=== PATIENT | male | born 1975 | race Hispanic/Latino ===

== ENCOUNTER 2016-10-20 18:47 | Inpatient (IN) | payer OTHER ==
[2016-10-20 18:49] VITALS: BMI 21.2
[2016-10-20] MEDS ORDERED: Morphine 4 mg/ml ISec IVP STA (18:59)
[2016-10-20] MEDS ORDERED: Sodium Chloride 0.9% 1,000 ML IV STA (18:59)
--- NOTE | 2016-10-20 19:03 | ED PDOC ---
"Arrival/HPI - General Chief Complaint: Abdominal Pain Time Seen by Provider: 10/20/16 18:53 Historian: Patient - History of Present Illness Narrative History of Present Illness (Text): 10/20/16 19:00 41 y/o male, citizen of [place] [employer] [place] Izzy Braga -1002, no pmh, nkda, c/o rt. flank pain x 1 day. Sharp and aching pain, no urinary symptoms, start from the rt. flank to the rt. sided abdomen region, aggravated by breathing, no diarrhea, no fever or chills, no chest pain or shortness of breath, no coughing, no rash, no other medical or psychological complaints. Past Medical History - Provider Review Nursing Documentation Reviewed: Yes - Infectious Disease Hx of Infectious Diseases: None - Psychiatric Hx Substance Use: No - Anesthesia Hx Anesthesia: No Family/Social History - Physician Review Nursing Documentation Reviewed: Yes Family/Social History: Unknown Family HX Smoking Status: Current Some Days Smoker Hx Alcohol Use: No Hx Substance Use: No Allergies/Home Meds Allergies/Adverse Reactions: Allergies No Known Allergies Allergy (Verified 10/20/16 18:50) Home Medications: Home Meds Medication Instructions Recorded Confirmed No Known Home Med 10/20/16 10/20/16 Review of Systems - Review of Systems Constitutional: absent: Fatigue Eyes: absent: Vision Changes ENT: absent: Hearing Changes Respiratory: absent: SOB, Cough Cardiovascular: absent: Chest Pain, Palpitations Gastrointestinal: Abdominal Pain. absent: Diarrhea, Nausea, Vomiting Neurological: absent: Headache, Dizziness, Focal Weakness Physical Exam Vital Signs Reviewed: Yes Vital Signs Temp Pulse Resp BP Pulse Ox 10/20/16 21:07 78 18 137/86 98 10/20/16 19:25 90 17 148/93 H 100 10/20/16 18:51 98.8 F 96 H 18 126/85 96 Temperature: Afebrile Blood Pressure: Normal Pulse: Regular Respiratory Rate: Normal Appearance: Positive for: Well-Appearing, Non-Toxic Pain Distress: Severe Mental Status: Positive for: Alert and Oriented X 3 - Systems Exam Head: Present: Atraumatic, Normocephalic Pupils: Present: PERRL Extroacular Muscles: Present: EOMI Conjunctiva: Present: Normal Mouth: Present: Moist Mucous Membranes Neck: Present: Normal Range of Motion Respiratory/Chest: Present: Clear to Auscultation, Good Air Exchange. No: Respiratory Distress, Accessory Muscle Use Cardiovascular: Present: Regular Rate and Rhythm, Normal S1, S2. No: Murmurs Abdomen: Present: Tenderness (+ttp on the rt. flank ), Normal Bowel Sounds. No : Distention, Peritoneal Signs, Rebound, Guarding Back: Present: Normal Inspection Upper Extremity: Present: Normal Inspection. No: Cyanosis, Edema Lower Extremity: Present: Normal Inspection. No: Edema Neurological: Present: GCS=15, Speech Normal, Motor Func Grossly Intact, Gait Normal, Memory Normal Skin: Present: Warm, Dry, Normal Color. No: Rashes Psychiatric: Present: Alert, Oriented x 3, Normal Insight, Normal Concentration Medical Decision Making ED Course and Treatment: 10/20/16 19:03 -labs/ua -CT abdomen and pelvis -IVF/morphine -observe and reassess 10/20/16 21:20 -Labs are non-significant except wbc 11.4 which is likely stress induced, no fever or chills. -UA show no UTI -CT abdomen show pneumonia vs. atelectasis vs. PE with IV contrast -D-dimer and chest x-ray ordered, discussed and agreed by Dr. Ramirez -Pt. was still having pain, diladid 1mg IV ordered. 10/20/16 22:30 -D-dimer 6.00, pt. will be anticoagulated since he has pleuritic pain. Pt. has no rectal bleeding or hematuria. -IV rocephine 1gm prophylatic order as the CT chest show possible pneumonia but the plain radiology film wet read show questionable findings of the rt. lower lobe infiltrate. -PT/PTT ordered -I discussed the case/treatment and observation plan with Dr. Ramirez, he agreed that the patient needs to be admit tonight for observation for v/q scan tomorrow morning and anticoagulate with lovenox. -I discussed with the patient and he agreed with the plan as well which he is awared of all the lab results. -I discussed with pmd DR. Alford, doesn't admit at [place], discussed all the labs and radiology, agreed on the observation and prophylactically treatment as well. 10/20/16 22:53 -I spoke to the medical office representative preschool education director and Dr. Orozco, discussed the case in detail, Dr. Orozco agreed to observe the patient overnight until v/q scan or CTA tomorrow. -NSR @ 65 BPM, no ST elevation or depression, no T wave inversion. - Lab Interpretations Lab Results: 10/21/16 06:00 10/21/16 06:00 Lab Results 10/21/16 06:00: Hemoglobin A1c 6.2 10/21/16 06:00: Triglycerides 84, Cholesterol 165, LDL Cholesterol Direct 106, HDL Cholesterol 39, Lipase 55 10/21/16 06:00: Sodium 139, Potassium 4.2, Chloride 103, Carbon Dioxide 26, Anion Gap 14, BUN 11, Creatinine 0.9, Est GFR ( Amer) > 60, Est GFR (Non- Af Amer) > 60, Random Glucose 105, Calcium 9.0, Phosphorus 3.3, Magnesium 1.8 10/21/16 06:00: WBC 9.8, RBC 4.66, Hgb 13.9 L, Hct 42.4, MCV 91.0, MCH 29.8, MCHC 32.8, RDW 13.2, Plt Count 172, MPV 10.9, Gran % 68.0, Lymph % (Auto) 22.3, [place] % (Auto) 8.7 H, Eos % (Auto) 0.8 L, Baso % (Auto) 0.2, Gran # 6.67 H, Lymph # 2.2, [place] # 0.9 H, Eos # 0.1, Baso # 0.02 10/20/16 21:35: PT 11.2, INR 1.04, APTT 27.5 10/20/16 21:35: D-Dimer, Quantitative 6.00 H 10/20/16 19:10: Sodium 139, Potassium 3.9, Chloride 102, Carbon Dioxide 25, Anion Gap 16, BUN 12, Creatinine 1.0, Est GFR ( Amer) > 60, Est GFR (Non- Af Amer) > 60, Random Glucose 110, Calcium 9.1, Total Bilirubin 0.8, AST 23, ALT 23, Alkaline Phosphatase 54, Total Protein 7.7, Albumin 4.4, Globulin 3.3, Albumin/Globulin Ratio 1.3 10/20/16 19:10: Urine Color Yellow, Urine Appearance Clear, Urine pH 6.0, Ur Specific [place] 1.020, Urine Protein Trace H, Urine Glucose (UA) Negative, Urine Ketones Negative, Urine Blood Negative, Urine Nitrate Negative, Urine Bilirubin Negative, Urine Urobilinogen 0.2, Ur Leukocyte Esterase Negative, Urine RBC 0 - 2, Urine WBC 0 - 2, Ur Epithelial Cells 0 - 2, Urine Bacteria Neg 10/20/16 19:10: WBC 11.4 H, RBC 4.96, Hgb 15.0, Hct 44.3, MCV 89.3, MCH 30.2, MCHC 33.9, RDW 12.9, Plt Count 175, MPV 10.6, Gran % 74.4 H, Lymph % (Auto) 16.2 L, [place] % (Auto) 8.7 H, Eos % (Auto) 0.6 L, Baso % (Auto) 0.1, Gran # 8.47 H, Lymph # 1.8, [place] # 1.0 H, Eos # 0.1, Baso # 0.01 I have reviewed the lab results: Yes Interpretation: Abnormal lab values (wbc 11.4, ddimer 6.00) - RAD Interpretation Radiology Orders: 10/20/16 19:01 ABDOMEN & PELVIS [ABD & PELVIS IV CONTRAST ONLY] [CT] Stat 10/20/16 21:19 CHEST TWO VIEWS (PA/LAT) [RAD] Stat 10/20/16 23:51 DUPLEX LOWER EXTRM VEIN BILAT [US] Stat CONTRAST: 94 mL of omni 350 administered intravenously. COMPARISON: No relevant prior studies available. FINDINGS: Limitations: Motion artifact - mild. Lower thorax: Mild dependent atelectasis. Patchy airspace disease posterior periphery RIGHT lower lobe. Questionable filling defects within branches of RIGHT lower lobe pulmonary artery. ABDOMEN: Liver: Unremarkable. No mass. ROXANN MAGALLON | Final Radiology Report CONFIDENTIALITY STATEMENT This report is intended only for use by the referring physician, and only in accordance with law. If you received this in error, call [phone]. Page 2 of 2 Gallbladder and bile ducts: No calcified stones. No ductal dilation. Pancreas: No ductal dilation. No mass. Spleen: No splenomegaly. Adrenals: No mass. Kidneys and ureters: No mass. No hydronephrosis. Stomach and bowel: No definite mural thickening. No obstruction. Appendix: Normal caliber. No definite inflammation. PELVIS: Bladder: Unremarkable. Reproductive: Mildly enlarged prostate. ABDOMEN and PELVIS: Intraperitoneal space: No significant fluid collection. No free air. Bones/joints: No acute fracture. Soft tissues: Unremarkable. Vasculature: Unremarkable. No aneurysm. Lymph nodes: No pathologically enlarged lymph nodes. IMPRESSION: 1. Patchy airspace disease RIGHT lower lobe. DDX: Atelectasis, pneumonia, aspiration, infarct. 2. Questionable filling defects within RIGHT lower lobe pulmonary artery. Suggest CTA when clinically able. 3. Incidental/non-acute findings are described above. Thank you for allowing us to participate in the care of your patient. Dictated and Authenticated by: Harmeet Hawkins MD 10/20/2016 9:08 PM Eastern Time ([place] & [place]) Parking Station Attendant: Radiologist - EKG Interpretation EKG Interpretation (Text): 10/20/16 23:50 NSR @ 65 BPM, no ST elevation or depression, no T wave inversion. Interpreted by ED Physician: Yes Type: 12 lead EKG Comparison: No previous EKG avail. - Medication Orders Current Medication Orders: Azithromycin (Zithromax) 500 mg PO DAILY JYOTI PRN Reason: Protocol Last Admin: 10/21/16 10:21 Dose: 500 mg Hydromorphone HCl (Dilaudid) 1 mg IVP Q4H PRN PRN Reason: Pain, severe (8-10) Last Admin: 10/21/16 10:21 Dose: 1 mg Re-Assess: GELA Pain Assessment Document 10/21/16 11:21 RDS (Rec: 10/21/16 12:21 RDS [facility]) Pain Reassessment Is this a pain reassessment? Yes Sleep Is patient sleeping during reassessment? Yes Sodium Chloride (Sodium Chloride 0.9%) 1,000 mls @ 150 mls/hr IV .Q6H40M [facility] Last Admin: 10/21/16 05:42 Dose: 150 mls/hr Ceftriaxone Sodium (Rocephin 1 Gram Ivpb) 1 gm in 100 mls @ 100 mls/hr IVPB DAILY JYOTI PRN Reason: Protocol Last Admin: 10/21/16 09:11 Dose: 100 mls/hr Heparin Sodium/Dextrose (Heparin 25,000 Units/250ml In D5w) 25,000 units in 250 mls @ 12.982 mls/hr IV .[id number] PRN; Protocol; 18 UNITS/KG/HR PRN Reason: ADJUST RATE PER PROTOCOL Last Admin: 10/21/16 09:00 Dose: 18 units/kg/hr, 12.982 mls/hr Oxycodone/Acetaminophen (Percocet 5/325 Mg Tab) 1 tab PO Q4H PRN PRN Reason: Pain, moderate (4-7) Stop: 10/24/16 05:53 Pantoprazole Sodium (Protonix Ec Tab) 40 mg PO 0600 JYOTI Last Admin: 10/21/16 05:42 Dose: 40 mg Discontinued Medications Enoxaparin Sodium (Lovenox) 75 mg SC STAT STA PRN Reason: Protocol Stop: 10/20/16 22:54 Last Admin: 10/20/16 23:05 Dose: 75 mg Enoxaparin Sodium (Lovenox) 75 mg SC Q12 JYOTI PRN Reason: Protocol Heparin Sodium (Porcine) (Heparin) 5,800 units 80 units/kg (5800 units) IV ONCE ONE PRN Reason: Protocol Stop: 10/21/16 07:48 Last Admin: 10/21/16 08:45 Dose: 5,800 units Hydromorphone HCl (Dilaudid) 1 mg IVP STAT STA Stop: 10/20/16 20:57 Last Admin: 10/20/16 21:10 Dose: 1 mg Hydromorphone HCl (Dilaudid) 1 mg IVP Q4H PRN PRN Reason: Pain, moderate (4-7) Last Admin: 10/21/16 05:42 Dose: 1 mg Sodium Chloride (Sodium Chloride 0.9%) 1,000 mls @ 999 mls/hr IV .Q1H1M STA Stop: 10/20/16 19:59 Last Admin: 10/20/16 19:30 Dose: 999 mls/hr Ceftriaxone Sodium (Rocephin 1 Gram Ivpb) 1 gm in 100 mls @ 200 mls/hr IVPB STAT STA PRN Reason: Protocol Stop: 10/20/16 22:55 Last Admin: 10/20/16 22:38 Dose: 200 mls/hr Iohexol (Omnipaque 350 100 Ml) Confirm Administered Dose 350 mg .ROUTE .STK-MED ONE Stop: 10/20/16 19:51 Morphine Sulfate (Morphine) 4 mg IVP STAT STA Stop: 10/20/16 19:00 Last Admin: 10/20/16 19:41 Dose: 4 mg - PA / LOSS PREVENTION SUPERVISOR / Resident Statement MD/DO has reviewed & agrees with the documentation as recorded. Disposition/Present on Arrival - Present on Arrival Any Indicators Present on Arrival: No History of DVT/PE: No History of Uncontrolled Diabetes: No Urinary Catheter: No History of Decub. Ulcer: No History Surgical Site Infection Following: None - Disposition Have Diagnosis and Disposition been Completed?: Yes Diagnosis: Flank pain, Pleuritic pain, Elevated d-dimer, Abnormal chest x-ray Disposition: HOSPITALIZED Disposition Time: 22:32 Patient Plan: Observation Patient Problems: Current Active Problems Problem Status Onset Flank pain Acute Pleuritic pain Acute Condition: STABLE"
[2016-10-20 19:24] LABS: URINE BILIRUBIN NEGATIVE (NEGATIVE); URINE BLOOD NEGATIVE (NEGATIVE); URINE GLUCOSE (UA) NEGATIVE (NEGATIVE); URINE LEUKOCYTE ESTERASE NEGATIVE Leu/uL (NEGATIVE); URINE NITRATE NEGATIVE (NEGATIVE); URINE PROTEIN TRACE mg/dL (<30 mg/dL); URINE UROBILINOGEN 0.2 E.U./dL (<1 E.U./dL)
[2016-10-20 19:27] LABS: BASO # 0.01 K/mm3 (0.0-2.0); BASO % 0.1 % (0.0-3.0); EOS # 0.1 (0.0-0.7); EOS % 0.6 % (1.5-5.0); GRAN # 8.47 (1.4-6.5); GRAN % 74.4 % (50.0-68.0); LYMPH # 1.8 (1.2-3.4); LYMPH % 16.2 % (22.0-35.0); MEAN CELL VOLUME 89.3 fL (80.0-105.0); MEAN CORPUSCULAR HEMOGLOBIN 30.2 pg (25.0-35.0); MEAN CORPUSCULAR HGB CONC 33.9 g/dl (31.0-37.0); MEAN PLATELET VOLUME 10.6 fl (7.0-11.0); MONO % 8.7 % (1.0-6.0); PLATELET COUNT 175 10^3/uL (120.0-450.0); RBC 4.96 10^6/uL (3.5-6.1); RED CELL DISTRIBUTION WIDTH 12.9 % (11.5-14.5); WHITE BLOOD COUNT 11.4 10^3/ul (4.5-11.0)
[2016-10-20 19:34] LABS: ALB/GLOB RATIO 1.3 (1.1-1.8); ALBUMIN 4.4 g/dL (3.0-4.8); ALT/SGPT 23 U/L (7-56); AST/SGOT 23 U/L (15-59); BLOOD UREA NITROGEN 12 mg/dL (7-21); CALCIUM 9.1 mg/dL (8.4-10.5); GFR AFRICAN-AMERICAN > 60; GFR NON-AFRICAN AMERICAN > 60
[2016-10-20 19:49] LABS: URINE APPEARANCE CLEAR (CLEAR); URINE COLOR YELLOW (YELLOW)
[2016-10-20] MEDS ORDERED: Iohexol 350 MG/100 ML VIAL ONE (19:50)
[2016-10-20 19:52] LABS: URINE BACTERIA NEG (NEG); URINE EPITHELIAL CELLS 0 - 2 /hpf (0-5); URINE RBC 0 - 2 /hpf (0-2); URINE WBC 0 - 2 /hpf (0-6)
[2016-10-20] MEDS ORDERED: HYDROmorphone 1 mg/ml ISec IVP STA (20:56)
--- NOTE | 2016-10-20 21:08 | CT ---
EXAM: CT Abdomen and Pelvis With Intravenous Contrast CLINICAL HISTORY: 41 years old, male; Pain; Abdominal pain; Localized; Right; Additional info: Rt. Flank to rt. Sided abdomen region TECHNIQUE: Axial computed tomography images of the abdomen and pelvis with intravenous contrast. This CT exam was performed using one or more of the following dose reduction techniques: automated exposure control, adjustment of the mA and/or kV according to patient size, and/or use of iterative reconstruction technique. Coronal and sagittal reformatted images were created and reviewed. CONTRAST: 94 mL of omni 350 administered intravenously. COMPARISON: No relevant prior studies available. FINDINGS: Limitations: Motion artifact - mild. Lower thorax: Mild dependent atelectasis. Patchy airspace disease posterior periphery RIGHT lower lobe. Questionable filling defects within branches of RIGHT lower lobe pulmonary artery. ABDOMEN: Liver: Unremarkable. No mass. Gallbladder and bile ducts: No calcified stones. No ductal dilation. Pancreas: No ductal dilation. No mass. Spleen: No splenomegaly. Adrenals: No mass. Kidneys and ureters: No mass. No hydronephrosis. Stomach and bowel: No definite mural thickening. No obstruction. Appendix: Normal caliber. No definite inflammation. PELVIS: Bladder: Unremarkable. Reproductive: Mildly enlarged prostate. ABDOMEN and PELVIS: Intraperitoneal space: No significant fluid collection. No free air. Bones/joints: No acute fracture. Soft tissues: Unremarkable. Vasculature: Unremarkable. No aneurysm. Lymph nodes: No pathologically enlarged lymph nodes. IMPRESSION: 1. Patchy airspace disease RIGHT lower lobe. DDX: Atelectasis, pneumonia, aspiration, infarct. 2. Questionable filling defects within RIGHT lower lobe pulmonary artery. Suggest CTA when clinically able. 3. Incidental/non-acute findings are described above.
[2016-10-20] MEDS ORDERED: cefTRIAXone 1 gm 1 GM/100 ML BAG IVPB STA (22:26)
[2016-10-20] MEDS ORDERED: Enoxaparin 60 mg Syringe SC STA (22:43)
[2016-10-20] MEDS ORDERED: Enoxaparin 80 mg Syringe SC STA ×2 (22:44→22:53)
--- NOTE | 2016-10-20 22:52 | CP.PCM.HP ---
Addendum entered and electronically signed by Mario Castaneda DO 10/21/16 00:25: EKG: NSR , Nonspecific T wave changes HR 65 bpm QTc 405 Original Note: <Mario Castaneda - Last Filed: 10/21/16 00:22> History of Present Illness - History of Present Illness History of Present Illness: Patient is a 41 year old male who presents to the ED for evaluation of abdominal pain which began at this morning with no provoking event. Patient states that the pain is sharp in nature, begins in the RLQ and radiates to the Right upper flank region. It is rated a 5/10 at baseline but becomes a 10/10 during deep inspiration. 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 Denies recent sick contacts. Admits to right leg cramping due to extended drive. Patient denies fever, chills, dizziness, headaches, chest pain, SOB, abdominal pain, N/V, diarrhea, constipation, urinary symptoms, and leg swelling. PMHx: None PSHx: None Allergies: None Social Hx: occasional EOTH use beer, 1 cig/ month, no illicit drug use Family Hx: father- hypertension Medications: No home medications Present on Admission - Present on Admission Any Indicators Present on Admission: No Review of Systems - Review of Systems Review of Systems: 12 point review of systems negative except as indicated in HPI. Past Patient History - Infectious Disease Hx of Infectious Diseases: None - Past Social History Smoking Status: Current Some Days Smoker - PSYCHIATRIC Hx Substance Use: No - SURGICAL HISTORY Hx Surgeries: No - ANESTHESIA Hx Anesthesia: No Meds Allergies/Adverse Reactions: Allergies Allergy/AdvReac Type Severity Reaction Status Date / Time No Known Allergies Allergy Verified 10/20/16 18:50 Physical Exam - Constitutional Appears: Non-toxic, No Acute Distress - Head Exam Head Exam: ATRAUMATIC, NORMAL INSPECTION - Eye Exam Eye Exam: EOMI, Normal appearance - ENT Exam ENT Exam: Mucous Membranes Moist - Neck Exam Neck exam: Positive for: Normal Inspection, Tenderness. Negative for: Thyromegaly - Respiratory Exam Respiratory Exam: Clear to Auscultation Bilateral, NORMAL BREATHING PATTERN. absent: Accessory Muscle Use, Rales, Rhonchi, Wheezes Additional comments: deep inspiration limited 2/2 pain - Cardiovascular Exam Cardiovascular Exam: REGULAR RHYTHM, +S1, +S2 - GI/Abdominal Exam GI & Abdominal Exam: Normal Bowel Sounds, Soft, Tenderness. absent: Guarding, Rebound, Rigid Additional comments: tender to palpation in the RLQ negative McBurneys point and negative Rovsings sign - Back Exam Back exam: NORMAL INSPECTION. absent: CVA tenderness (L), CVA tenderness (R), paraspinal tenderness - Neurological Exam Neurological exam: CN II-XII Intact, Normal Gait, Oriented x3 - Psychiatric Exam Psychiatric exam: Normal Affect, Normal Mood - Skin Skin Exam: Normal Color, Warm Results - Vital Signs Recent Vital Signs: Last Vital Signs Temp 98.8 F 10/20/16 18:51 Pulse 78 10/20/16 21:07 Resp 18 10/20/16 21:07 BP 137/86 10/20/16 21:07 Pulse Ox 98 10/20/16 21:07 - Labs Result Diagrams: 10/20/16 19:10 10/20/16 19:10 Labs: Laboratory Results - last 24 hr 10/20/16 10/20/16 10/20/16 19:10 19:10 19:10 WBC 11.4 H RBC 4.96 Hgb 15.0 Hct 44.3 MCV 89.3 MCH 30.2 MCHC 33.9 RDW 12.9 Plt Count 175 MPV 10.6 Gran % 74.4 H Lymph % (Auto) 16.2 L [place] % (Auto) 8.7 H Eos % (Auto) 0.6 L Baso % (Auto) 0.1 Gran # 8.47 H Lymph # 1.8 [place] # 1.0 H Eos # 0.1 Baso # 0.01 D-Dimer, Quantitative Sodium 139 Potassium 3.9 Chloride 102 Carbon Dioxide 25 Anion Gap 16 BUN 12 Creatinine 1.0 Est GFR ( Amer) > 60 Est GFR (Non-Af Amer) > 60 Random Glucose 110 Calcium 9.1 Total Bilirubin 0.8 AST 23 ALT 23 Alkaline Phosphatase 54 Total Protein 7.7 Albumin 4.4 Globulin 3.3 Albumin/Globulin Ratio 1.3 Urine Color Yellow Urine Appearance Clear Urine pH 6.0 Ur Specific [place] 1.020 Urine Protein Trace H Urine Glucose (UA) Negative Urine Ketones Negative Urine Blood Negative Urine Nitrate Negative Urine Bilirubin Negative Urine Urobilinogen 0.2 Ur Leukocyte Esterase Negative Urine RBC 0 - 2 Urine WBC 0 - 2 Ur Epithelial Cells 0 - 2 Urine Bacteria Neg 10/20/16 21:35 WBC RBC Hgb Hct MCV MCH MCHC RDW Plt Count MPV Gran % Lymph % (Auto) [place] % (Auto) Eos % (Auto) Baso % (Auto) Gran # Lymph # [place] # Eos # Baso # D-Dimer, Quantitative 6.00 H Sodium Potassium Chloride Carbon Dioxide Anion Gap BUN Creatinine Est GFR ( Amer) Est GFR (Non-Af Amer) Random Glucose Calcium Total Bilirubin AST ALT Alkaline Phosphatase Total Protein Albumin Globulin Albumin/Globulin Ratio Urine Color Urine Appearance Urine pH Ur Specific [place] Urine Protein Urine Glucose (UA) Urine Ketones Urine Blood Urine Nitrate Urine Bilirubin Urine Urobilinogen Ur Leukocyte Esterase Urine RBC Urine WBC Ur Epithelial Cells Urine Bacteria Assessment & Plan - Assessment and Plan (Free Text) Assessment: Patient is a 41 year old male with no known PMHx who is being admitted to the hospital for evaluation and treatment of abdominal pain and right flank pain. 1. Abdominal Pain and Right flank pain - CT of abdomen and pelvis with IV contrast reviwed: --Patchy airspace disease RIGHT lower lobe. DDX: Atelectasis, pneumonia, aspiration, infarct. --Questionable filling defects within RIGHT lower lobe pulmonary artery. --Intraperitoneal space: No significant fluid collection. No free air - diluadid 1mg q4 prn pain 3. Elevated D- Dimer, rule out- DVT - dopplers of lower extremities, if negative study then clots may be pelvic vasculature and attain CTA - patient received IV dye in ED, must wait 24 hours prior to CTA due to dye load , patient started IVF NS @ 150 for dye clearance - empiric lovenox 3. Leukocytosis 11.4, details- possible pneumonia - likely reactive in nature - empiric antibiotic coverage with rocephin and azithromycin - does not meet SIRS criteria - monitor closely trend via CBC 4. 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 Started on therapeutic lovenox, venous doppler for legs if negative then later in the day CTA for pe study to confirm and notice the extent of the PE. Patient's VS and spo2 has been stable his main complain is currently peuritic chest pain worsened on breathing, dilaudid 1mg iv q4h ordered prn for now. Echo will be ordered as well.
[2016-10-21] MEDS: Sodium Chloride 0.9% 1,000 ML IV SCH ×4 (00:03→22:12)
[2016-10-21] MEDS: HYDROmorphone 1 mg/ml ISec IVP PRN ×4 (00:11→14:45)
[2016-10-21 00:25] LABS: INR 1.04 (0.93-1.08); PARTIAL THROMBOPLASTIN TIME 27.5 Seconds (23.7-30.8); PROTHROMBIN TIME 11.2 Seconds (9.9-11.8)
[2016-10-21] MEDS: Pantoprazole 40 mg EC Tab PO SCH (05:42)
[2016-10-21 06:51] LABS: BASO # 0.02 K/mm3 (0.0-2.0); BASO % 0.2 % (0.0-3.0); EOS # 0.1 (0.0-0.7); EOS % 0.8 % (1.5-5.0); GRAN # 6.67 (1.4-6.5); HEMOGLOBIN 13.9 gm/dL (14.0-18.0); LYMPH # 2.2 (1.2-3.4); LYMPH % 22.3 % (22.0-35.0); MEAN CORPUSCULAR HEMOGLOBIN 29.8 pg (25.0-35.0); MEAN CORPUSCULAR HGB CONC 32.8 g/dl (31.0-37.0); MEAN PLATELET VOLUME 10.9 fl (7.0-11.0); MONO # 0.9 (0.1-0.6); MONO % 8.7 % (1.0-6.0); PLATELET COUNT 172 10^3/uL (120.0-450.0); RBC 4.66 10^6/uL (3.5-6.1); RED CELL DISTRIBUTION WIDTH 13.2 % (11.5-14.5); WHITE BLOOD COUNT 9.8 10^3/ul (4.5-11.0)
[2016-10-21 06:59] LABS: BLOOD UREA NITROGEN 11 mg/dL (7-21); GFR AFRICAN-AMERICAN > 60; GFR NON-AFRICAN AMERICAN > 60; MAGNESIUM 1.8 mg/dL (1.7-2.2)
--- NOTE | 2016-10-21 07:32 | RAD ---
HISTORY: questionable rt. sided pneumonia? COMPARISON: No prior. TECHNIQUE: Chest PA and lateral FINDINGS: LUNGS: There is ill-defined airspace disease in the right lower lobe. The left lung is clear. PLEURA: No significant pleural effusion identified. No pneumothorax apparent. CARDIOVASCULAR: Normal. OSSEOUS STRUCTURES: No significant abnormalities. VISUALIZED UPPER ABDOMEN: Normal. OTHER FINDINGS: None. IMPRESSION: Ill-defined airspace disease in the right lower lobe could represent subsegmental atelectasis however superimposed pneumonia cannot be excluded. Follow-up after medical management is recommended to ensure complete resolution.
[2016-10-21 08:00] LABS: HDL CHOLESTEROL 39 mg/dL (29-60); LDL CHOLESTEROL 106 mg/dL (0-129); LIPASE 55 U/L (23-300)
--- NOTE | 2016-10-21 08:04 | US ---
HISTORY: Leg pain and swelling. Evaluate for DVT PHYSICIAN(S): Tree Garcia MD. TECHNIQUE: Duplex sonography and color-flow Doppler with graded compression were used to evaluate the deep venous systems of both lower extremities. FINDINGS: There is occlusive thrombus noted in the left popliteal and visualized tibial veins. The thrombus is somewhat echogenic and may be subacute. The left femoral vein and left common femoral vein are patent and compressible. There is no sonographic evidence for deep venous thrombosis in the visualized segments of the right lower extremity. IMPRESSION: Subacute occlusive thrombus in the left popliteal and tibial veins.
[2016-10-21] MEDS: Heparin 25,000units in D5W 25,000 UNITS/250 ML BAG IV PRN (09:00)
[2016-10-21] MEDS: cefTRIAXone 1 gm 1 GM/100 ML BAG IVPB SCH (09:11)
[2016-10-21] MEDS ORDERED: Enoxaparin 80 mg Syringe SC SCH (10:00)
--- NOTE | 2016-10-21 15:58 | CP.PCM.PN ---
<Inocente Yoo - Last Filed: 10/21/16 16:15> Subjective - Date & Time of Evaluation Date of Evaluation: 10/21/16 Time of Evaluation: 15:55 - Subjective Subjective: Patient has been seen and examined. Patient has stated that his RLL abdominal pain which radiated to his right flank area has slightly improved but has not resolved. He denies any lower extremity pain. He denies and fevers, SOB chills , chest pain, change in any bowel or urinary habits. Objective - Vital Signs/Intake and Output Vital Signs (last 24 hours): Temp Pulse Resp BP Pulse Ox 98.5 F 78 15 135/90 97 10/21/16 11:44 10/21/16 14:00 10/21/16 11:44 10/21/16 11:44 10/21/16 06:00 - Medications Medications: Current Medications Azithromycin (Zithromax) 500 mg PO DAILY [facility] PRN Reason: Protocol Last Admin: 10/21/16 10:21 Dose: 500 mg Hydromorphone HCl (Dilaudid) 1 mg IVP Q4H PRN PRN Reason: Pain, severe (8-10) Last Admin: 10/21/16 14:45 Dose: 1 mg Sodium Chloride (Sodium Chloride 0.9%) 1,000 mls @ 150 mls/hr IV .Q6H40M [facility] Last Admin: 10/21/16 14:44 Dose: 150 mls/hr Ceftriaxone Sodium (Rocephin 1 Gram Ivpb) 1 gm in 100 mls @ 100 mls/hr IVPB DAILY [facility] PRN Reason: Protocol Last Admin: 10/21/16 09:11 Dose: 100 mls/hr Heparin Sodium/Dextrose (Heparin 25,000 Units/250ml In D5w) 25,000 units in 250 mls @ 12.982 mls/hr IV .[id number] PRN; Protocol; 18 UNITS/KG/HR PRN Reason: ADJUST RATE PER PROTOCOL Last Admin: 10/21/16 09:00 Dose: 18 units/kg/hr, 12.982 mls/hr Oxycodone/Acetaminophen (Percocet 5/325 Mg Tab) 1 tab PO Q4H PRN PRN Reason: Pain, moderate (4-7) Stop: 10/24/16 05:53 Pantoprazole Sodium (Protonix Ec Tab) 40 mg PO 0600 J[facility]I Last Admin: 10/21/16 05:42 Dose: 40 mg - Labs Labs: PT 11.2 Seconds (9.9-11.8) 10/20/16 21:35 INR 1.04 (0.93-1.08) 10/20/16 21:35 APTT 27.5 Seconds (23.7-30.8) 10/20/16 21:35 - Constitutional Appears: Well, Non-toxic, No Acute Distress - Head Exam Head Exam: ATRAUMATIC, NORMOCEPHALIC - Eye Exam Eye Exam: EOMI - ENT Exam ENT Exam: Mucous Membranes Moist - Neck Exam Neck Exam: absent: Lymphadenopathy - Respiratory Exam Respiratory Exam: Clear to Ausculation Bilateral. absent: Rales, Rhonchi, Wheezes, Stridor - Cardiovascular Exam Cardiovascular Exam: +S1, +S2. absent: Tachycardia, Murmur - GI/Abdominal Exam GI & Abdominal Exam: Soft, Tenderness, Normal Bowel Sounds. 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 Abdominal Pain and Right flank pain - CT of abdomen and pelvis showed: --Patchy airspace disease RIGHT lower lobe. DDX: Atelectasis, pneumonia, aspiration, infarct. --Questionable filling defects within RIGHT lower lobe pulmonary artery. --Intraperitoneal space: No significant fluid collection. No free air - diluadid/percocet for pain -Heparin -D-Dimer Elevated; Chest CTA tomorrow ( at least [address]) -Hypercouagubility workup: ATII, Protein C and S, Factor V Leiden, Prothrombin gene mut. 2. Leukocytosis (resolved) -WBC -9.8 , - likely reactive in nature - empiric antibiotic coverage with rocephin and azithromycin - does not meet SIRS criteria - monitor closely trend via CBC 3. PPX - on lovenox - protonix <Elizabeth Alvarez - Last Filed: 10/22/16 10:27> Objective - Vital Signs/Intake and Output Vital Signs (last 24 hours): Temp Pulse Resp BP Pulse Ox 99.2 F 77 2 L 121/82 98 10/22/16 06:00 10/22/16 06:00 10/22/16 06:00 10/22/16 06:00 10/22/16 06:00 Intake and Output: 10/22/16 10/22/16 06:59 18:59 Intake Total 1223 3692 Output Total 1600 Balance -377 3692 - Medications Medications: Current Medications Azithromycin (Zithromax) 500 mg PO DAILY [facility] PRN Reason: Protocol Last Admin: 10/22/16 09:34 Dose: 500 mg Hydromorphone HCl (Dilaudid) 1 mg IVP Q4H PRN PRN Reason: Pain, severe (8-10) Last Admin: 10/21/16 14:45 Dose: 1 mg Sodium Chloride (Sodium Chloride 0.9%) 1,000 mls @ 150 mls/hr IV .Q6H40M [facility] Last Admin: 10/22/16 09:34 Dose: 150 mls/hr Ceftriaxone Sodium (Rocephin 1 Gram Ivpb) 1 gm in 100 mls @ 100 mls/hr IVPB DAILY [facility] PRN Reason: Protocol Last Admin: 10/22/16 09:33 Dose: 100 mls/hr Heparin Sodium/Dextrose (Heparin 25,000 Units/250ml In D5w) 25,000 units in 250 mls @ 12.982 mls/hr IV .[id number] PRN; Protocol; 18 UNITS/KG/HR PRN Reason: ADJUST RATE PER PROTOCOL Last Admin: 10/22/16 06:02 Dose: 16 units/kg/hr, 11.539 mls/hr Oxycodone/Acetaminophen (Percocet 5/325 Mg Tab) 1 tab PO Q4H PRN PRN Reason: Pain, moderate (4-7) Stop: 10/24/16 05:53 Last Admin: 10/22/16 05:38 Dose: 1 tab Pantoprazole Sodium (Protonix Ec Tab) 40 mg PO 0600 [facility] Last Admin: 10/22/16 05:38 Dose: 40 mg Warfarin Sodium (Coumadin) 5 mg PO 1800 [facility] PRN Reason: Protocol - Labs Labs: 10/22/16 07:12 10/22/16 07:12 PT 11.2 Seconds (9.9-11.8) 10/20/16 21:35 INR 1.04 (0.93-1.08) 10/20/16 21:35 APTT 53.5 Seconds (23.7-30.8) H 10/22/16 07:12 Attending/Attestation - Attestation I have personally seen and examined this patient.: Yes I have fully participated in the care of the patient.: Yes I have reviewed all pertinent clinical information, including history, physical exam and plan: Yes Notes (Text): I have seen and examined the patient at bedside. 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 Patient was started on IV heparin. Hypercoagulable work up was sent this morning. Will hold off on CT angio till tomorrow as he has CT abdmen with contrast last night. Continue IVF. Continue rocephin and zithro. Follow up procal and CT angio. Upon discharge patient will follow up in [facility] clinic. Dr Elizabeth Alvarez
--- NOTE | 2016-10-21 16:11 | CARD ---
APPROVED REPORT EKG Measurement Heart [id number] [id number] [id number] <Conclusion> Normal sinus rhythm Minimal voltage criteria for LVH, may be normal variant Nonspecific T wave abnormality Abnormal ECG
[2016-10-21] MEDS: Oxycodone/Acetaminophen 5/325 mg Tab PO PRN (19:59)
--- NOTE | 2016-10-21 20:27 | CARD ---
APPROVED REPORT EXAM: Two-dimensional and M-mode echocardiogram with Doppler and color Doppler. INDICATION Pulmonary Embolism 2D DIMENSIONS Left Atrium (2D)3.6 (1.6-4.0cm)IVSd1.0 (0.7-1.1cm) LVDd4.6 (3.9-5.9cm)PWd1.2 (0.7-1.1cm) LVDs3.4 (2.5-4.0cm)FS (%) 26.5 % LVEF (%)52.0 (>50%) M-Mode DIMENSIONS Aortic Root2.50 (2.2-3.7cm)Aortic Cusp Exc.1.70 (1.5-2.0cm) Aortic Valve AoV Peak Wecryuhk436.0cm/[place] GR.9mmHg Mitral Valve MV E Gcuafbzk16.6cm/sMV A Odwrvklg06.3cm/sE/A ratio1.2 TDI E/Lateral E'0.0E/Medial E'0.0 Tricuspid Valve TR Peak Kyryevlv307qe/sRAP [id number] Peak Gr.31mmHg [id number] LEFT VENTRICLE The left ventricle is normal size. There is normal left ventricular wall thickness. The left ventricular function is normal. The left ventricular ejection fraction is within the normal range. There is normal LV segmental wall motion. The left ventricular diastolic function is normal. RIGHT VENTRICLE The right ventricle is normal size. There is normal right ventricular wall thickness. The right ventricular systolic function is normal. ATRIA The left atrium size is normal. The right atrium size is normal. AORTIC VALVE The aortic valve is normal in structure. No aortic regurgitation is present. MITRAL VALVE The mitral valve is normal in structure. There is no mitral valve regurgitation noted. TRICUSPID VALVE There is mild tricuspid regurgitation. There is mild pulmonary hypertension. PULMONIC VALVE There is mild pulmonic valvular regurgitation. GREAT VESSELS The aortic root is normal in size. PERICARDIAL EFFUSION There is no pericardial effusion. <Conclusion> The left ventricle is normal size. There is normal left ventricular wall thickness. The left ventricular function is normal. The left ventricular ejection fraction is within the normal range. There is normal LV segmental wall motion. The left ventricular diastolic function is normal. There is mild tricuspid regurgitation. There is mild pulmonary hypertension.
[2016-10-22] MEDS: Pantoprazole 40 mg EC Tab PO SCH (05:38)
[2016-10-22] MEDS: Oxycodone/Acetaminophen 5/325 mg Tab PO PRN ×2 (05:38→13:48)
[2016-10-22] MEDS: Heparin 25,000units in D5W 25,000 UNITS/250 ML BAG IV PRN (06:02)
[2016-10-22] MEDS: Sodium Chloride 0.9% 1,000 ML IV SCH ×3 (06:10→14:20)
[2016-10-22 07:25] LABS: BASO # 0.01 K/mm3 (0.0-2.0); BASO % 0.1 % (0.0-3.0); EOS # 0.1 (0.0-0.7); EOS % 1.4 % (1.5-5.0); GRAN # 5.78 (1.4-6.5); GRAN % 63.5 % (50.0-68.0); HEMOGLOBIN 12.9 gm/dL (14.0-18.0); LYMPH # 2.3 (1.2-3.4); LYMPH % 24.8 % (22.0-35.0); MEAN CELL VOLUME 90.6 fL (80.0-105.0); MEAN CORPUSCULAR HEMOGLOBIN 29.7 pg (25.0-35.0); MEAN CORPUSCULAR HGB CONC 32.7 g/dl (31.0-37.0); MEAN PLATELET VOLUME 10.8 fl (7.0-11.0); MONO # 0.9 (0.1-0.6); MONO % 10.2 % (1.0-6.0); PLATELET COUNT 160 10^3/uL (120.0-450.0); RBC 4.35 10^6/uL (3.5-6.1); WHITE BLOOD COUNT 9.1 10^3/ul (4.5-11.0)
[2016-10-22 08:03] LABS: BLOOD UREA NITROGEN 8 mg/dL (7-21); CALCIUM 8.7 mg/dL (8.4-10.5); GFR AFRICAN-AMERICAN > 60; GFR NON-AFRICAN AMERICAN > 60
[2016-10-22] MEDS: cefTRIAXone 1 gm 1 GM/100 ML BAG IVPB SCH (09:33)
--- NOTE | 2016-10-22 11:42 | CP.PCM.PN ---
<STAR SMITH - Last Filed: 10/22/16 11:38> Subjective - Date & Time of Evaluation Date of Evaluation: 10/22/16 Time of Evaluation: 08:40 - Subjective Subjective: patient was seen and examined by bedside. pt states that he still has the R- sided chest pain, and that he feels it more upon inspiration and with movement. denies sob, new cp, fevers, n/v/d, headaches, pain in the legs. Objective - Vital Signs/Intake and Output Vital Signs (last 24 hours): Temp Pulse Resp BP Pulse Ox 99.2 F 77 2 L 121/82 98 10/22/16 06:00 10/22/16 06:00 10/22/16 06:00 10/22/16 06:00 10/22/16 06:00 Intake and Output: 10/22/16 10/22/16 06:59 18:59 Intake Total 1223 3692 Output Total 1600 Balance -377 3692 - Medications Medications: Current Medications Azithromycin (Zithromax) 500 mg PO DAILY JYOTI PRN Reason: Protocol Last Admin: 10/22/16 09:34 Dose: 500 mg Hydromorphone HCl (Dilaudid) 1 mg IVP Q4H PRN PRN Reason: Pain, severe (8-10) Last Admin: 10/21/16 14:45 Dose: 1 mg Sodium Chloride (Sodium Chloride 0.9%) 1,000 mls @ 150 mls/hr IV .Q6H40M [facility] Last Admin: 10/22/16 09:34 Dose: 150 mls/hr Ceftriaxone Sodium (Rocephin 1 Gram Ivpb) 1 gm in 100 mls @ 100 mls/hr IVPB DAILY [facility] PRN Reason: Protocol Last Admin: 10/22/16 09:33 Dose: 100 mls/hr Heparin Sodium/Dextrose (Heparin 25,000 Units/250ml In D5w) 25,000 units in 250 mls @ 12.982 mls/hr IV .[id number] PRN; Protocol; 18 UNITS/KG/HR PRN Reason: ADJUST RATE PER PROTOCOL Last Admin: 10/22/16 06:02 Dose: 16 units/kg/hr, 11.539 mls/hr Oxycodone/Acetaminophen (Percocet 5/325 Mg Tab) 1 tab PO Q4H PRN PRN Reason: Pain, moderate (4-7) Stop: 10/24/16 05:53 Last Admin: 10/22/16 05:38 Dose: 1 tab Pantoprazole Sodium (Protonix Ec Tab) 40 mg PO 0600 J[facility]I Last Admin: 10/22/16 05:38 Dose: 40 mg Warfarin Sodium (Coumadin) 5 mg PO 1800 J[facility] PRN Reason: Protocol - Labs Labs: 10/22/16 07:12 10/22/16 07:12 PT 11.2 Seconds (9.9-11.8) 10/20/16 21:35 INR 1.04 (0.93-1.08) 10/20/16 21:35 APTT 53.5 Seconds (23.7-30.8) H 10/22/16 07:12 - Constitutional Appears: Well, No Acute Distress - Head Exam Head Exam: ATRAUMATIC, NORMAL INSPECTION, NORMOCEPHALIC - Eye Exam Eye Exam: EOMI, Normal appearance, PERRL. absent: Conjunctival injection, Nystagmus, Scleral icterus Pupil Exam: NORMAL ACCOMODATION - ENT Exam ENT Exam: Mucous Membranes Moist, Normal Exam, Normal External Ear Exam - Neck Exam Neck Exam: Full ROM, Normal Inspection - Respiratory Exam Respiratory Exam: Clear to Ausculation Bilateral, NORMAL BREATHING PATTERN. absent: Accessory Muscle Use, Chest Wall Tenderness, Rales, Rhonchi, Wheezes, Respiratory Distress, Stridor - Cardiovascular Exam Cardiovascular Exam: RRR, +S1, +S2. absent: Gallop, JVD, Rubs, Murmur - GI/Abdominal Exam GI & Abdominal Exam: Soft, Normal Bowel Sounds. absent: Distended, Tenderness, Organomegaly - Extremities Exam Extremities Exam: absent: Calf Tenderness, Pedal Edema, Tenderness - Back Exam Back Exam: muscle spasm, paraspinal tenderness Additional comments: pt is mildly tender to palpation on the lateral R flank/lower chest (ribs 9-12) - Neurological Exam Neurological Exam: Alert, Awake, Normal Gait, Oriented x3 - Psychiatric Exam Psychiatric exam: Normal Affect, Normal Mood - Skin Skin Exam: Normal Color, Warm. 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 D-Dimer was 6. CT abdomen showed patchy airspace disease RIGHT lower lobe and questionable filling defects within RIGHT lower lobe pulmonary artery. ECHO showed 52% EF, mild tricuspid regurgitation and mild pulm hypertension. EKG showed NSR. 1. LLE DVT, r/o PE - Duplex showed subacute occlusive thrombus in L popliteal and tibial veins - CTA of chest today to r/o PE, keep pt NPO, f/u results - D-Dimer, inconclusive CTabd and pt presentation - Heme consulted, recs appreciated - pt bridging to Coumadin 5mg today - Hypercouagubility workup: ATII, Protein C and S, Factor V Leiden, Prothrombin gene mut. 2. RLQ and Right flank pain - diluadid/percocet for pain 3. Leukocytosis (resolved), likely reactive in nature - WBC -9.1 - Procal 0.13 - empiric antibiotic coverage with rocephin and azithromycin d2, f/u CTA chest 4. PPX - on heparin, bridging to coumadin - protonix Patient was seen, discussed and evaluated with attending, Dr. Kim Smith PGY1 <Elizabeth Alvarez - Last Filed: 10/22/16 13:31> Objective - Vital Signs/Intake and Output Vital Signs (last 24 hours): Temp Pulse Resp BP Pulse Ox 98.6 F 86 20 131/86 98 10/22/16 12:00 10/22/16 12:00 10/22/16 12:00 10/22/16 12:00 10/22/16 06:00 Intake and Output: 10/22/16 10/22/16 06:59 18:59 Intake Total 1223 3692 Output Total 1600 Balance -377 3692 - Medications Medications: Current Medications Azithromycin (Zithromax) 500 mg PO DAILY [facility] PRN Reason: Protocol Last Admin: 10/22/16 09:34 Dose: 500 mg Hydromorphone HCl (Dilaudid) 1 mg IVP Q4H PRN PRN Reason: Pain, severe (8-10) Last Admin: 10/21/16 14:45 Dose: 1 mg Sodium Chloride (Sodium Chloride 0.9%) 1,000 mls @ 150 mls/hr IV .Q6H40M [facility] Last Admin: 10/22/16 09:34 Dose: 150 mls/hr Ceftriaxone Sodium (Rocephin 1 Gram Ivpb) 1 gm in 100 mls @ 100 mls/hr IVPB DAILY [facility] PRN Reason: Protocol Last Admin: 10/22/16 09:33 Dose: 100 mls/hr Heparin Sodium/Dextrose (Heparin 25,000 Units/250ml In D5w) 25,000 units in 250 mls @ 12.982 mls/hr IV .[id number] PRN; Protocol; 18 UNITS/KG/HR PRN Reason: ADJUST RATE PER PROTOCOL Last Admin: 10/22/16 06:02 Dose: 16 units/kg/hr, 11.539 mls/hr Oxycodone/Acetaminophen (Percocet 5/325 Mg Tab) 1 tab PO Q4H PRN PRN Reason: Pain, moderate (4-7) Stop: 10/24/16 05:53 Last Admin: 10/22/16 05:38 Dose: 1 tab Pantoprazole Sodium (Protonix Ec Tab) 40 mg PO 0600 [facility] Last Admin: 10/22/16 05:38 Dose: 40 mg Warfarin Sodium (Coumadin) 5 mg PO 1800 [facility] PRN Reason: Protocol - Labs Labs: 10/22/16 07:12 10/22/16 07:12 PT 11.2 Seconds (9.9-11.8) 10/20/16 21:35 INR 1.04 (0.93-1.08) 10/20/16 21:35 APTT 53.5 Seconds (23.7-30.8) H 10/22/16 07:12 Attending/Attestation - Attestation I have personally seen and examined this patient.: Yes I have fully participated in the care of the patient.: Yes I have reviewed all pertinent clinical information, including history, physical exam and plan: Yes Notes (Text): I have seen and examined the patient at bedside. 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 Patient was started on IV heparin. Hypercoagulable work up was sent. Continue IVF. Continue rocephin and zithro. Procal is 0.13. CT angio is pending. Will start coumadin. Discussed with Dr Felix. Upon discharge patient will follow up in [facility] clinic. Dr Elizabeth Alvarez
[2016-10-22] MEDS ORDERED: Iodixanol 320 MG/ML 100 ML BOTTLE IV ONE (12:09)
--- NOTE | 2016-10-22 13:47 | CT ---
PROCEDURE: CT Chest with contrast (Pulmonary Angiogram) HISTORY: rule out PE COMPARISON: None available. TECHNIQUE: Axial computed tomography images were obtained of the chest in the pulmonary arterial phase of enhancement. Coronal and sagittal reformatted images were created and reviewed. Intravenous contrast dose: 100 mL Visipaque 320 Radiation dose: Total exam DLP = 342.25 mGy-cm. This CT exam was performed using one or more of the following dose reduction techniques: Automated exposure control, adjustment of the mA and/or kV according to patient size, and/or use of iterative reconstruction technique. FINDINGS: PULMONARY ARTERIES: Pulmonary embolism, extensive in right lower lobe segmental and subsegmental branch vessels. There is pulmonary embolism noted in the lingular segment left upper lobe. There is questionable pulmonary embolism in the left lower lobe. There is questionable pulmonary embolism in the right middle lobe. The examination is somewhat limited by the timing of the scan relative to the contrast bolus. AORTA: No acute findings. No thoracic aortic aneurysm. LUNGS: Extensive subsegmental atelectasis in right lower lobe. There is a small amount of aeration within the atelectatic right lower lobe. Mild left lower lobe subsegmental atelectasis. No pulmonary infiltrate elsewhere. PLEURAL SPACES: Small right pleural effusion. Trace left pleural effusion. No pneumothorax. HEART: Unremarkable. No cardiomegaly. No significant pericardial effusion. LYMPH NODES: No lymphadenopathy. BONES, CHEST WALL: Unremarkable. No fracture or destructive lesion OTHER FINDINGS: Unremarkable. IMPRESSION: Findings consistent with multi lobar pulmonary embolism. Extensive right lower lobe subsegmental atelectasis. Mild left lower lobe subsegmental atelectasis. Small right and trace left pleural effusion. The findings in this examination were discussed with the patient's nurse, Hanna, by telephone at 1:40 p.m. on 10/22/2016.
[2016-10-22] MEDS: HYDROmorphone 1 mg/ml ISec IVP PRN (19:46)
--- NOTE | 2016-10-22 23:18 | CP.PCM.CON ---
History of Present Illness - History of Present Illness History of Present Illness: Mr. Landeros is a 41 year old male admitted with left lower leg pain. Doppler showed left tibial DVT. Ct chest showed B/L PE. he has history of DVT in left leg 4 years ago. He could not tell if he took any anti-coagulation then. he does not have PCP, no medical care . Review of Systems - Constitutional Constitutional: Fatigue - EENT Eyes: absent: As Per HPI, Blind Spots, Blurred Vision, Change in Vision, Decreased Night Vision, Diplopia, Discharge, Dry Eye, Exophthalmos, Floaters, Irritation, Itchy Eyes, Loss of Peripheral Vision, Pain, Photophobia, Requires Corrective Lenses, Sees Flashes, Spots in Vision, Tunnel Vision, Other Visual Disturbances, Loss of Vision, Other Ears: absent: As Per HPI, Decreased Hearing, Ear Discharge, Ear Pain, Tinnitus, Abnormal Hearing, Disequilibrium, Dizziness, Other Nose/Mouth/Throat: absent: As Per HPI, Epistaxis, Nasal Congestion, Nasal Discharge, Nasal Obstruction, Nasal Trauma, Nose Pain, Post Nasal Drip, Sinus Pain, Sinus Pressure, Bleeding Gums, Change in Voice, Dental Pain, Dry Mouth, Dysphagia, Halitosis, Hoarsness, Lip Swelling, Mouth Lesions, Mouth Pain, Odynophagia, Sore Throat, Throat Swelling, Tongue Swelling, Facial Pain, Neck Pain, Neck Mass, Other - Cardiovascular Cardiovascular: Chest Pain - Respiratory Respiratory: Dyspnea - Gastrointestinal Gastrointestinal: absent: As Per HPI, Abdominal Pain, Belching, Bloating, Change in Bowel Habits, Change in Stool Character, Coffee Ground Emesis, Constipation, Cramping, Diarrhea, Dyspepsia, Dysphagia, Early Satiety, Excessive Flatus, Fecal Incontinence, Heartburn, Hematemesis, Hematochezia, Loose Stools, Melena, Nausea, Odynophagia, Temesmus, Vomiting, Other - Genitourinary Genitourinary: absent: As Per HPI, Change in Urinary Stream, Difficulty Urinating, Dysuria, Flank Pain, Hematuria, Pyuria, Nocturia, Urinary Incontinence, Urinary Frequency, Urinary Hesitance, Urinary Urgency, Voiding Freq/Small Amts, Freq UTI, Hx Renal/Bladder Calculi, Hx /Renal Surgery, Bladder Distension, Other - Musculoskeletal Musculoskeletal: Abnormal Gait Additional comments: left leg pain - Integumentary Integumentary: absent: As Per HPI, Acne, Alopecia, Bleeding Lesions, Change in Hair, Change in Nails, Change in Pigmentation, Changing Lesions, Dry Skin, Erythema, Furuncle, Hirsutism, Lesions, New Lesions, Non-Healing Lesions, Photosensitivity, Pruritus, Rash, Skin Pain, Skin Ulcer, Sores, Striae, Swelling , Unusual Bruising, Wounds, Jaundice, Other - Neurological Neurological: absent: As Per HPI, Abnormal Gait, Abnormal Hearing, Abnormal Movements, Abnormal Speech, Behavioral Changes, Burning Sensations, Confusion, Convulsions, Disequilibrium, Dizziness, Numbness, Focal Weakness, Frequent Falls , Headaches, Lack of Coordination, Loss of Vision, Memory Loss, Paresthesias, Radicular Pain, Restless Legs, Sensory Deficit, Syncope, Tingling, Tremor, Vertigo, Weakness, Other Visual Disturbances, Other - Psychiatric Psychiatric: absent: As Per HPI, Abnormal Sleep Pattern, Anhedonia, Anxiety, Auditory Hallucinations, Behavioral Changes, Change in Appetite, Change in Libido, Confusion, Depression, Difficulty Concentrating, Hallucinations, Homicidal Ideation, Hopelessness, Irritability, Memory Loss, Mood Swings, Panic Attacks, Paranoia, Suicidal Ideation, Visual Hallucinations, Tactile Hallucinations, Other - Endocrine Endocrine: absent: As Per HPI, Change in Body Appearance, Change in Libido, Cold Intolorance, Deepening of Voice, Excessive Sweating, Fatigue, Flushing, Heat Intolorance, Increase in Ring/Shoe/Hat Size, Palpitations, Polydipsia, Polyphagia, Polyuria, Other - Hematologic/Lymphatic Hematologic: As Per HPI Past Patient History - Infectious Disease Hx of Infectious Diseases: None - Past Social History Smoking Status: Current Some Days Smoker - CARDIAC Hx Cardiac Disorders: No - PULMONARY Hx Respiratory Disorders: No - NEUROLOGICAL Hx Neurological Disorder: No - HEENT Hx HEENT Problems: No - RENAL Hx Chronic Kidney Disease: No - ENDOCRINE/METABOLIC Hx Endocrine Disorders: No - HEMATOLOGICAL/ONCOLOGICAL Hx Blood Disorders: No - INTEGUMENTARY Hx Dermatological Problems: No - MUSCULOSKELETAL/RHEUMATOLOGICAL Hx Musculoskeletal Disorders: No Hx Falls: No - GASTROINTESTINAL Hx Gastrointestinal Disorders: No - GENITOURINARY/GYNECOLOGICAL Hx Genitourinary Disorders: No - PSYCHIATRIC Hx Substance Use: No - SURGICAL HISTORY Hx Surgeries: No - ANESTHESIA Hx Anesthesia: No Meds Allergies/Adverse Reactions: Allergies Allergy/AdvReac Type Severity Reaction Status Date / Time No Known Allergies Allergy Verified 10/20/16 18:50 - Medications Medications: Current Medications Azithromycin (Zithromax) 500 mg PO DAILY JYOTI PRN Reason: Protocol Last Admin: 10/22/16 09:34 Dose: 500 mg Hydromorphone HCl (Dilaudid) 1 mg IVP Q4H PRN PRN Reason: Pain, severe (8-10) Last Admin: 10/22/16 19:46 Dose: 1 mg Ceftriaxone Sodium (Rocephin 1 Gram Ivpb) 1 gm in 100 mls @ 100 mls/hr IVPB DAILY JYOTI PRN Reason: Protocol Last Admin: 10/22/16 09:33 Dose: 100 mls/hr Heparin Sodium/Dextrose (Heparin 25,000 Units/250ml In D5w) 25,000 units in 250 mls @ 12.982 mls/hr IV .[id number] PRN; Protocol; 18 UNITS/KG/HR PRN Reason: ADJUST RATE PER PROTOCOL Last Admin: 10/22/16 06:02 Dose: 16 units/kg/hr, 11.539 mls/hr Oxycodone/Acetaminophen (Percocet 5/325 Mg Tab) 1 tab PO Q4H PRN PRN Reason: Pain, moderate (4-7) Stop: 10/24/16 05:53 Last Admin: 10/22/16 13:48 Dose: 1 tab Pantoprazole Sodium (Protonix Ec Tab) 40 mg PO 0600 [facility] Last Admin: 10/22/16 05:38 Dose: 40 mg Warfarin Sodium (Coumadin) 10 mg PO 1800 J[facility]I PRN Reason: Protocol Last Admin: 10/22/16 17:19 Dose: 10 mg Physical Exam - Constitutional Appears: Well - Head Exam Head Exam: ATRAUMATIC, NORMAL INSPECTION, NORMOCEPHALIC - Eye Exam Eye Exam: Normal appearance Pupil Exam: NORMAL ACCOMODATION - ENT Exam ENT Exam: Mucous Membranes Moist, Normal Exam - Neck Exam Neck exam: Positive for: Normal Inspection - Respiratory Exam Respiratory Exam: Clear to Auscultation Bilateral - Cardiovascular Exam Cardiovascular Exam: REGULAR RHYTHM, +S1, +S2 - GI/Abdominal Exam GI & Abdominal Exam: Normal Bowel Sounds - Back Exam Back exam: NORMAL INSPECTION - Neurological Exam Neurological exam: Alert, Normal Gait, Oriented x3 - Psychiatric Exam Psychiatric exam: Normal Mood - Skin Skin Exam: Normal Color, Warm Results - Vital Signs Recent Vital Signs: Last Vital Signs Temp 98.7 F 10/22/16 17:06 Pulse 81 10/22/16 18:00 Resp 20 10/22/16 17:06 BP 131/74 10/22/16 17:06 Pulse Ox 98 10/22/16 06:00 - Labs Result Diagrams: 10/22/16 07:12 10/22/16 07:12 Labs: Laboratory Results - last 24 hr 10/21/16 10/22/16 10/22/16 23:50 07:12 07:12 WBC 9.1 RBC 4.35 Hgb 12.9 L Hct 39.4 L MCV 90.6 MCH 29.7 MCHC 32.7 RDW 13.0 Plt Count 160 MPV 10.8 Gran % 63.5 Lymph % (Auto) 24.8 [place] % (Auto) 10.2 H Eos % (Auto) 1.4 L Baso % (Auto) 0.1 Gran # 5.78 Lymph # 2.3 [place] # 0.9 H Eos # 0.1 Baso # 0.01 APTT 67.6 H Sodium 138 Potassium 3.7 Chloride 103 Carbon Dioxide 26 Anion Gap 13 BUN 8 Creatinine 0.8 Est GFR ( Amer) > 60 Est GFR (Non-Af Amer) > 60 Random Glucose 100 Calcium 8.7 10/22/16 07:12 WBC RBC Hgb Hct MCV MCH MCHC RDW Plt Count MPV Gran % Lymph % (Auto) [place] % (Auto) Eos % (Auto) Baso % (Auto) Gran # Lymph # [place] # Eos # Baso # APTT 53.5 H Sodium Potassium Chloride Carbon Dioxide Anion Gap BUN Creatinine Est GFR ( Amer) Est GFR (Non-Af Amer) Random Glucose Calcium Assessment & Plan - Assessment and Plan (Free Text) Assessment: 1. recurrent DVT left leg DVT. 2. PE B/L 3. Hypercoaguable state. Plan : on heparin drip. continue same. Coumadin 10 mg daily until INR more than 2.0. Hypercoaguable work up - Factor V leidin, MTHFR gene mutation, protein C, S levels, DAVID, anti phospholipid antibody. bedside PT, encouraged ambulation. thank you Dr. Alvarez for allowing us to participate in his care. - Date & Time Date: 10/21/16 Time: 11:00
[2016-10-23] MEDS: HYDROmorphone 1 mg/ml ISec IVP PRN ×2 (00:06→05:05)
[2016-10-23] MEDS: Heparin 25,000units in D5W 25,000 UNITS/250 ML BAG IV PRN ×2 (03:56→23:01)
[2016-10-23] MEDS: Pantoprazole 40 mg EC Tab PO SCH (05:05)
[2016-10-23 07:47] LABS: BASO # 0.01 K/mm3 (0.0-2.0); BASO % 0.1 % (0.0-3.0); EOS # 0.2 (0.0-0.7); EOS % 1.7 % (1.5-5.0); GRAN # 5.96 (1.4-6.5); GRAN % 62.1 % (50.0-68.0); HEMOGLOBIN 13.6 gm/dL (14.0-18.0); LYMPH # 2.6 (1.2-3.4); LYMPH % 27.5 % (22.0-35.0); MEAN CELL VOLUME 89.6 fL (80.0-105.0); MEAN CORPUSCULAR HEMOGLOBIN 30.2 pg (25.0-35.0); MEAN CORPUSCULAR HGB CONC 33.7 g/dl (31.0-37.0); MEAN PLATELET VOLUME 10.3 fl (7.0-11.0); MONO # 0.8 (0.1-0.6); MONO % 8.6 % (1.0-6.0); PLATELET COUNT 194 10^3/uL (120.0-450.0); RED CELL DISTRIBUTION WIDTH 12.8 % (11.5-14.5); WHITE BLOOD COUNT 9.6 10^3/ul (4.5-11.0)
[2016-10-23 07:58] LABS: INR 1.06 (0.93-1.08); PARTIAL THROMBOPLASTIN TIME 49.2 Seconds (23.7-30.8); PROTHROMBIN TIME 11.5 Seconds (9.9-11.8)
[2016-10-23 08:06] LABS: BLOOD UREA NITROGEN 8 mg/dL (7-21); CALCIUM 9.3 mg/dL (8.4-10.5); GFR AFRICAN-AMERICAN > 60; GFR NON-AFRICAN AMERICAN > 60
--- NOTE | 2016-10-23 09:10 | CP.PCM.PN ---
<JenniferLucy - Last Filed: 10/23/16 10:48> Subjective - Date & Time of Evaluation Date of Evaluation: 10/23/16 Time of Evaluation: 10:48 - Subjective Subjective: Patient seen and examined at bedside. There were no acute overnight events. He reports still having R sided pain in his lower chest when taking deep breaths. He also reports being constipated. Patient admitted to having DVT in past, but does no remember how it was discovered, if it was treated or any other information about it. He denies having SOB, n/v/d, numbness/tingling, fever or chills. Objective - Vital Signs/Intake and Output Vital Signs (last 24 hours): Temp Pulse Resp BP Pulse Ox 98.6 F 70 18 109/74 95 10/23/16 06:00 10/23/16 06:00 10/23/16 06:00 10/23/16 06:00 10/23/16 06:00 Intake and Output: 10/23/16 10/23/16 06:59 18:59 Intake Total 388 240 Output Total 550 Balance 388 -310 - Medications Medications: Current Medications Heparin Sodium/Dextrose (Heparin 25,000 Units/250ml In D5w) 25,000 units in 250 mls @ 12.982 mls/hr IV .[id number] PRN; Protocol; 18 UNITS/KG/HR PRN Reason: ADJUST RATE PER PROTOCOL Last Admin: 10/23/16 03:56 Dose: 16 units/kg/hr, 11.539 mls/hr Morphine Sulfate (Morphine) 2 mg IVP Q6H PRN PRN Reason: Pain, severe (8-10) Oxycodone/Acetaminophen (Percocet 5/325 Mg Tab) 1 tab PO Q4H PRN PRN Reason: Pain, moderate (4-7) Stop: 10/24/16 05:53 Last Admin: 10/22/16 13:48 Dose: 1 tab Pantoprazole Sodium (Protonix Ec Tab) 40 mg PO 0600 [facility] Last Admin: 10/23/16 05:05 Dose: 40 mg Warfarin Sodium (Coumadin) 10 mg PO 1800 JYOTI PRN Reason: Protocol Last Admin: 10/22/16 17:19 Dose: 10 mg - Labs Labs: 10/23/16 07:00 10/23/16 07:00 PT 11.5 Seconds (9.9-11.8) 10/23/16 07:00 INR 1.06 (0.93-1.08) 10/23/16 07:00 APTT 49.2 Seconds (23.7-30.8) H 10/23/16 07:00 - Constitutional Appears: No Acute Distress - Head Exam Head Exam: ATRAUMATIC, NORMAL INSPECTION, NORMOCEPHALIC - Eye Exam Eye Exam: Normal appearance, PERRL Pupil Exam: NORMAL ACCOMODATION, PERRL - ENT Exam ENT Exam: Mucous Membranes Moist - Respiratory Exam Respiratory Exam: Clear to Ausculation Bilateral, NORMAL BREATHING PATTERN. absent: Rales, Rhonchi, Wheezes - Cardiovascular Exam Cardiovascular Exam: REGULAR RHYTHM, +S1, +S2. absent: Gallop, Rubs, Murmur - GI/Abdominal Exam GI & Abdominal Exam: Soft, Normal Bowel Sounds. absent: Tenderness, Mass, Rebound - Extremities Exam Extremities Exam: Normal Inspection. 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 Plan: 1. LLE DVT and R sided PE - U/S showed subacute occlusive thrombus in L popliteal and tibial veins - CTA showed R multilobar PE - Pt on Heparin drip with Coumadin bridge (10mg) - INR 1.06 today- will continue to monitor daily - Heme consulted- recs appreciated - Hypercoag work up pending - Pain control with Morphine and Percocet - Incentive spirometer encouraged - Echo showed EF of 52%, no R heart strain noted. 2. Leukocytosis - Procal negative - afebrile, leukocytosis resolved - cultures negative - no evidence of pneumonia - Abx discontinued. 3. Constipation - Miralax BID - Monitor BM GI ppx: Protonix DVT ppx: Heparin drip Case seen, discussed and reviewed with attending. Megan Rodriguez PGY2 <Elizabeth Alvarez B - Last Filed: 10/23/16 14:52> Objective - Vital Signs/Intake and Output Vital Signs (last 24 hours): Temp Pulse Resp BP Pulse Ox 98.2 F 78 18 129/79 95 10/23/16 12:00 10/23/16 14:00 10/23/16 12:00 10/23/16 12:00 10/23/16 06:00 Intake and Output: 10/23/16 10/23/16 06:59 18:59 Intake Total 388 290 Output Total 550 Balance 388 -260 - Medications Medications: Current Medications Heparin Sodium/Dextrose (Heparin 25,000 Units/250ml In D5w) 25,000 units in 250 mls @ 12.982 mls/hr IV .[id number] PRN; Protocol; 18 UNITS/KG/HR PRN Reason: ADJUST RATE PER PROTOCOL Last Titration: 10/23/16 09:12 Dose: 18 units/kg/hr, 12.982 mls/hr Ibuprofen (Motrin Tab) 600 mg PO Q6H PRN PRN Reason: Pain, Mild (1-3) Morphine Sulfate (Morphine) 2 mg IVP Q6H PRN PRN Reason: Pain, severe (8-10) Last Admin: 10/23/16 13:43 Dose: 2 mg Oxycodone/Acetaminophen (Percocet 5/325 Mg Tab) 1 tab PO Q4H PRN PRN Reason: Pain, moderate (4-7) Stop: 10/24/16 05:53 Last Admin: 10/22/16 13:48 Dose: 1 tab Pantoprazole Sodium (Protonix Ec Tab) 40 mg PO 0600 [facility] Last Admin: 10/23/16 05:05 Dose: 40 mg Polyethylene Glycol (Miralax) 17 gm PO BID [facility] Last Admin: 10/23/16 12:16 Dose: Not Given Warfarin Sodium (Coumadin) 10 mg PO 1800 JYOTI PRN Reason: Protocol Last Admin: 10/22/16 17:19 Dose: 10 mg - Labs Labs: 10/23/16 07:00 10/23/16 07:00 PT 11.5 Seconds (9.9-11.8) 10/23/16 07:00 INR 1.06 (0.93-1.08) 10/23/16 07:00 APTT 49.2 Seconds (23.7-30.8) H 10/23/16 07:00 Attending/Attestation - Attestation I have personally seen and examined this patient.: Yes I have fully participated in the care of the patient.: Yes I have reviewed all pertinent clinical information, including history, physical exam and plan: Yes Notes (Text): I have seen and examined the patient at bedside. 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 Patient was started on IV heparin. Hypercoagulable work up was sent and is pending at this time. Will discontinue rocephin and zithro. Procal is 0.13. Encouraged to use incentive spirometer. Will continue coumadin and heparin until INR is therapeutic. Discussed with Dr Felix. Upon discharge patient will follow up in [facility] clinic. Dr Elizabeth Alvarez
[2016-10-23] MEDS: POLYETHYLENE GLYCOL 3350 17 GM/Dose PACKET PO SCH ×2 (12:16→17:08)
[2016-10-23] MEDS: Morphine 2 mg/ml ISec IVP PRN (13:43)
[2016-10-23] MEDS: Oxycodone/Acetaminophen 5/325 mg Tab PO PRN (17:11)
[2016-10-24] MEDS: Morphine 2 mg/ml ISec IVP PRN ×2 (00:30→22:40)
[2016-10-24 05:06] LABS: B2 GLYCOPROTEIN I AB(IGA) <9 SAU (<=20); B2 GLYCOPROTEIN I AB(IGG) <9 SGU (<=20); B2 GLYCOPROTEIN I AB(IGM) <9 SMU (<=20)
[2016-10-24] MEDS: Pantoprazole 40 mg EC Tab PO SCH (05:47)
[2016-10-24 05:48] LABS: CARDIOLIPIN AB (IGA) <11 APL (<=11); CARDIOLIPIN AB (IGG) <14 GPL (<=14); CARDIOLIPIN AB (IGM) <12 MPL (<=12); PHOSPHATIDYLSERINE AB IGA <20 U/mL (<20); PHOSPHATIDYLSERINE AB IGG <10 U/mL (<10); PHOSPHATIDYLSERINE AB IGM <25 U/mL (<25)
[2016-10-24 07:53] LABS: BASO # 0.02 K/mm3 (0.0-2.0); BASO % 0.2 % (0.0-3.0); EOS # 0.2 (0.0-0.7); EOS % 2.8 % (1.5-5.0); HEMOGLOBIN 14.1 gm/dL (14.0-18.0); LYMPH # 2.3 (1.2-3.4); LYMPH % 27.6 % (22.0-35.0); MEAN CELL VOLUME 88.8 fL (80.0-105.0); MEAN CORPUSCULAR HEMOGLOBIN 30.3 pg (25.0-35.0); MEAN CORPUSCULAR HGB CONC 34.1 g/dl (31.0-37.0); MEAN PLATELET VOLUME 10.8 fl (7.0-11.0); MONO # 0.7 (0.1-0.6); MONO % 8.4 % (1.0-6.0); PLATELET COUNT 221 10^3/uL (120.0-450.0); RBC 4.65 10^6/uL (3.5-6.1); RED CELL DISTRIBUTION WIDTH 12.7 % (11.5-14.5); WHITE BLOOD COUNT 8.2 10^3/ul (4.5-11.0)
[2016-10-24 08:02] LABS: BLOOD UREA NITROGEN 13 mg/dL (7-21); CALCIUM 9.5 mg/dL (8.4-10.5); GFR AFRICAN-AMERICAN > 60; GFR NON-AFRICAN AMERICAN > 60
[2016-10-24 08:04] LABS: INR 1.54 (0.93-1.08); PARTIAL THROMBOPLASTIN TIME 69.6 Seconds (23.7-30.8); PROTHROMBIN TIME 16.6 Seconds (9.9-11.8)
[2016-10-24] MEDS: POLYETHYLENE GLYCOL 3350 17 GM/Dose PACKET PO SCH ×2 (09:13→18:02)
[2016-10-24] MEDS: Heparin 25,000units in D5W 25,000 UNITS/250 ML BAG IV PRN (18:22)
--- NOTE | 2016-10-24 18:33 | CP.PCM.PN ---
<Inocente Yoo - Last Filed: 10/24/16 18:30> Subjective - Date & Time of Evaluation Date of Evaluation: 10/24/16 Time of Evaluation: 09:00 - Subjective Subjective: Patient has been seen and examined. Patient denies any CP, headaches, SOB, N/V/ D or constipation. Patient states his back pain has not gone away but has improved. Objective - Vital Signs/Intake and Output Vital Signs (last 24 hours): Temp Pulse Resp BP Pulse Ox 98.6 F 78 20 126/85 96 10/24/16 12:00 10/24/16 14:00 10/24/16 12:00 10/24/16 12:00 10/24/16 06:00 Intake and Output: 10/24/16 10/24/16 06:59 18:59 Intake Total 1480 250 Output Total 205 Balance 1275 250 - Medications Medications: Current Medications Heparin Sodium/Dextrose (Heparin 25,000 Units/250ml In D5w) 25,000 units in 250 mls @ 12.982 mls/hr IV .[id number] PRN; Protocol; 18 UNITS/KG/HR PRN Reason: ADJUST RATE PER PROTOCOL Last Admin: 10/24/16 18:22 Dose: 18 units/kg/hr, 12.982 mls/hr Ibuprofen (Motrin Tab) 600 mg PO Q6H PRN PRN Reason: Pain, Mild (1-3) Last Admin: 10/24/16 14:39 Dose: 600 mg Morphine Sulfate (Morphine) 2 mg IVP Q6H PRN PRN Reason: Pain, severe (8-10) Last Admin: 10/24/16 00:30 Dose: 2 mg Pantoprazole Sodium (Protonix Ec Tab) 40 mg PO 0600 [facility] Last Admin: 10/24/16 05:47 Dose: 40 mg Polyethylene Glycol (Miralax) 17 gm PO BID [facility] Last Admin: 10/24/16 18:02 Dose: Not Given Warfarin Sodium (Coumadin) 10 mg PO 1800 [facility] PRN Reason: Protocol Last Admin: 10/24/16 18:04 Dose: 10 mg - Labs Labs: 10/24/16 07:30 10/24/16 07:30 PT 16.6 Seconds (9.9-11.8) H 10/24/16 07:30 INR 1.54 (0.93-1.08) H 10/24/16 07:30 APTT 69.6 Seconds (23.7-30.8) H 10/24/16 07:30 - Constitutional Appears: Well, Non-toxic, No Acute Distress - Head Exam Head Exam: ATRAUMATIC, NORMOCEPHALIC - ENT Exam ENT Exam: Mucous Membranes Moist - Respiratory Exam Respiratory Exam: Clear to Ausculation Bilateral, Rhonchi, Wheezes, Respiratory Distress, NORMAL BREATHING PATTERN. absent: Chest Wall Tenderness, Stridor - Cardiovascular Exam Cardiovascular Exam: RRR, +S1, +S2. absent: Tachycardia - GI/Abdominal Exam GI & Abdominal Exam: Soft, Normal Bowel Sounds. 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 Plan: 1. LLE DVT and R sided PE - U/S showed subacute occlusive thrombus in L popliteal and tibial veins - CTA showed R multilobar PE - Pt on Heparin drip with Coumadin bridge (10mg) - INR 1.54 today- will wait till patient is therapeutic do discharge. - Heme consulted- recs appreciated - Hypercoag work up pending - Pain control with Morphine and Percocet - Incentive spirometer encouraged - Echo showed EF of 52%, no R heart strain noted. 2. Leukocytosis (resolved) - Procal negative - afebrile - cultures negative - no evidence of pneumonia - Abx discontinued. 3. Constipation (stable) - Miralax BID - Monitor BM GI ppx: Protonix DVT ppx: Heparin drip Dispo: Will plan for discharge once patients INR is therapeutic. Case seen, discussed and reviewed with attending. Inocente Yoo PGY1 <Elizabeth Alvarez - Last Filed: 10/25/16 11:54> Objective - Vital Signs/Intake and Output Vital Signs (last 24 hours): Temp Pulse Resp BP Pulse Ox 97.8 F 89 18 110/72 97 10/25/16 06:00 10/25/16 10:00 10/25/16 06:00 10/25/16 06:00 10/25/16 06:00 Intake and Output: 10/25/16 10/25/16 06:59 18:59 Intake Total 852 Output Total 200 Balance 652 - Medications Medications: Current Medications Ibuprofen (Motrin Tab) 600 mg PO Q6H PRN PRN Reason: Pain, Mild (1-3) Last Admin: 10/25/16 02:07 Dose: 600 mg Morphine Sulfate (Morphine) 2 mg IVP Q6H PRN PRN Reason: Pain, severe (8-10) Last Admin: 10/24/16 22:40 Dose: 2 mg Pantoprazole Sodium (Protonix Ec Tab) 40 mg PO 0600 [facility] Last Admin: 10/25/16 05:20 Dose: 40 mg Polyethylene Glycol (Miralax) 17 gm PO BID [facility] Last Admin: 10/25/16 09:48 Dose: 17 gm Warfarin Sodium (Coumadin) 10 mg PO 1800 [facility] PRN Reason: Protocol Last Admin: 10/24/16 18:04 Dose: 10 mg - Labs Labs: 10/25/16 07:00 10/25/16 07:00 PT 24.4 Seconds (9.9-11.8) H 10/25/16 07:00 INR 2.26 (0.93-1.08) H 10/25/16 07:00 APTT 116.5 Seconds (23.7-30.8) H* 10/25/16 07:00 Attending/Attestation - Attestation I have personally seen and examined this patient.: Yes I have fully participated in the care of the patient.: Yes I have reviewed all pertinent clinical information, including history, physical exam and plan: Yes Notes (Text): I have seen and examined the patient at bedside. 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 Patient was started on IV heparin. Hypercoagulable work up was sent and is pending at this time. Encouraged to use incentive spirometer. Will continue coumadin 10 mg today and heparin until INR is therapeutic. Discussed with Dr Felix. Upon discharge patient will follow up in [facility]. Dr Elizabeth Alvarez
[2016-10-25] MEDS: Pantoprazole 40 mg EC Tab PO SCH (05:20)
[2016-10-25 06:30] VITALS: O2SAT 97
[2016-10-25 07:29] LABS: BASO # 0.02 K/mm3 (0.0-2.0); BASO % 0.3 % (0.0-3.0); EOS # 0.3 (0.0-0.7); EOS % 4.5 % (1.5-5.0); GRAN # 3.61 (1.4-6.5); GRAN % 50.8 % (50.0-68.0); HEMOGLOBIN 14.4 gm/dL (14.0-18.0); LYMPH # 2.6 (1.2-3.4); LYMPH % 36.4 % (22.0-35.0); MEAN CELL VOLUME 89.5 fL (80.0-105.0); MEAN CORPUSCULAR HEMOGLOBIN 30.2 pg (25.0-35.0); MEAN CORPUSCULAR HGB CONC 33.7 g/dl (31.0-37.0); MEAN PLATELET VOLUME 10.7 fl (7.0-11.0); MONO # 0.6 (0.1-0.6); PLATELET COUNT 247 10^3/uL (120.0-450.0); RBC 4.77 10^6/uL (3.5-6.1); RED CELL DISTRIBUTION WIDTH 12.7 % (11.5-14.5); WHITE BLOOD COUNT 7.1 10^3/ul (4.5-11.0)
[2016-10-25 07:49] LABS: BLOOD UREA NITROGEN 16 mg/dL (7-21); CALCIUM 9.4 mg/dL (8.4-10.5); GFR AFRICAN-AMERICAN > 60; GFR NON-AFRICAN AMERICAN > 60
[2016-10-25 07:53] LABS: INR 2.26 (0.93-1.08); PROTHROMBIN TIME 24.4 Seconds (9.9-11.8)
[2016-10-25 08:00] LABS: PARTIAL THROMBOPLASTIN TIME 116.5 Seconds (23.7-30.8)
[2016-10-25] MEDS: POLYETHYLENE GLYCOL 3350 17 GM/Dose PACKET PO SCH (09:48)
[2016-10-25 11:59] VITALS: BP 125/82; PULSE 76; RESP 20; TEMP 98.6
--- NOTE | 2016-10-25 14:27 | CP.PCM.DIS ---
<Inocente Yoo - Last Filed: 10/25/16 14:24> Provider - Provider Date of Admission: 10/21/16 11:36 Attending physician: Elizabeth Alvarez MD Consults: Gonzalo Felix Time Spent in preparation of Discharge (in minutes): 40 Hospital Course - Lab Results Lab Results: Most Recent Lab Values WBC 7.1 10^3/ul (4.5-11.0) 10/25/16 07:00 RBC 4.77 10^6/uL (3.5-6.1) 10/25/16 07:00 Hgb 14.4 gm/dL (14.0-18.0) 10/25/16 07:00 Hct 42.7 % (42.0-52.0) 10/25/16 07:00 MCV 89.5 fL (80.0-105.0) 10/25/16 07:00 MCH 30.2 pg (25.0-35.0) 10/25/16 07:00 MCHC 33.7 g/dl (31.0-37.0) 10/25/16 07:00 RDW 12.7 % (11.5-14.5) 10/25/16 07:00 Plt Count 247 10^3/uL (120.0-450.0) 10/25/16 07:00 MPV 10.7 fl (7.0-11.0) 10/25/16 07:00 Gran % 50.8 % (50.0-68.0) 10/25/16 07:00 Lymph % (Auto) 36.4 % (22.0-35.0) H 10/25/16 07:00 Converse % (Auto) 8.0 % (1.0-6.0) H 10/25/16 07:00 Eos % (Auto) 4.5 % (1.5-5.0) 10/25/16 07:00 Baso % (Auto) 0.3 % (0.0-3.0) 10/25/16 07:00 Gran # 3.61 (1.4-6.5) 10/25/16 07:00 Lymph # 2.6 (1.2-3.4) 10/25/16 07:00 Converse # 0.6 (0.1-0.6) 10/25/16 07:00 Eos # 0.3 (0.0-0.7) 10/25/16 07:00 Baso # 0.02 K/mm3 (0.0-2.0) 10/25/16 07:00 PT 24.4 Seconds (9.9-11.8) H 10/25/16 07:00 INR 2.26 (0.93-1.08) H 10/25/16 07:00 APTT 116.5 Seconds (23.7-30.8) H* 10/25/16 07:00 D-Dimer, Quantitative 6.00 mg/L FEU (0-0.50) H 10/20/16 21:35 Protein C Activity 81 % (70-180) 10/21/16 11:45 Protein S Activity 96 % (70-150) 10/21/16 11:45 Factor V Activity 86 % (65-150) 10/21/16 11:45 Sodium 137 mmol/L (132-148) 10/25/16 07:00 Potassium 4.2 mmol/L (3.6-5.0) 10/25/16 07:00 Chloride 97 mmol/L (98-107) L 10/25/16 07:00 Carbon Dioxide 29 mmol/L (21-33) 10/25/16 07:00 Anion Gap 15 (10-20) 10/25/16 07:00 BUN 16 mg/dL (7-21) 10/25/16 07:00 Creatinine 1.0 mg/dL (0.5-1.4) 10/25/16 07:00 Est GFR ( Amer) > 60 10/25/16 07:00 Est GFR (Non-Af Amer) > 60 10/25/16 07:00 Random Glucose 95 mg/dL (70-110) 10/25/16 07:00 Hemoglobin A1c 6.2 % (4.2-6.5) 10/21/16 06:00 Calcium 9.4 mg/dL (8.4-10.5) 10/25/16 07:00 Phosphorus 3.3 mg/dL (2.5-4.5) 10/21/16 06:00 Magnesium 1.8 mg/dL (1.7-2.2) 10/21/16 06:00 Total Bilirubin 0.8 mg/dL (0.2-1.3) 10/20/16 19:10 AST 23 U/L (15-59) 10/20/16 19:10 ALT 23 U/L (7-56) 10/20/16 19:10 Alkaline Phosphatase 54 U/L (38-133) 10/20/16 19:10 Total Protein 7.7 g/dL (5.8-8.3) 10/20/16 19:10 Albumin 4.4 g/dL (3.0-4.8) 10/20/16 19:10 Globulin 3.3 gm/dL 10/20/16 19:10 Albumin/Globulin Ratio 1.3 (1.1-1.8) 10/20/16 19:10 Triglycerides 84 mg/dL (35-160) 10/21/16 06:00 Cholesterol 165 mg/dL (130-200) 10/21/16 06:00 LDL Cholesterol Direct 106 mg/dL (0-129) 10/21/16 06:00 HDL Cholesterol 39 mg/dL (29-60) 10/21/16 06:00 Lipase 55 U/L (23-300) 10/21/16 06:00 Procalcitonin 0.13 NG/ML (0.19-0.49) L 10/21/16 11:45 Urine Color Yellow (YELLOW) 10/20/16 19:10 Urine Appearance Clear (CLEAR) 10/20/16 19:10 Urine pH 6.0 (4.7-8.0) 10/20/16 19:10 Ur Specific [place] 1.020 (1.005-1.035) 10/20/16 19:10 Urine Protein Trace mg/dL (<30 mg/dL) H 10/20/16 19:10 Urine Glucose (UA) Negative mg/dL (NEGATIVE) 10/20/16 19:10 Urine Ketones Negative mg/dL (NEGATIVE) 10/20/16 19:10 Urine Blood Negative (NEGATIVE) 10/20/16 19:10 Urine Nitrate Negative (NEGATIVE) 10/20/16 19:10 Urine Bilirubin Negative (NEGATIVE) 10/20/16 19:10 Urine Urobilinogen 0.2 E.U./dL (<1 E.U./dL) 10/20/16 19:10 Ur Leukocyte Esterase Negative Agueda/uL (NEGATIVE) 10/20/16 19:10 Urine RBC 0 - 2 /hpf (0-2) 10/20/16 19:10 Urine WBC 0 - 2 /hpf (0-6) 10/20/16 19:10 Ur Epithelial Cells 0 - 2 /hpf (0-5) 10/20/16 19:10 Urine Bacteria Neg (NEG) 10/20/16 19:10 [id number] Ab <9 STORM (<=20) 10/21/16 11:45 Beta-2 GPI IgG Ab <9 SGU (<=20) 10/21/16 11:45 Beta-2 GPI IgM Ab <9 SMU (<=20) 10/21/16 11:45 Phosphatidylserine IgG <10 U/mL (<10) 10/21/16 11:45 Phosphatidylserine IgA <20 U/mL (<20) 10/21/16 11:45 Phosphatidylserine IgM <25 U/mL (<25) 10/21/16 11:45 Anti-Phospholipid Intrp see note 10/21/16 11:45 Anti-Cardiolipin IgG Ab <14 GPL (<=14) 10/21/16 11:45 Anti-Cardiolipin IgA Ab <11 APL (<=11) 10/21/16 11:45 Anti-Cardiolipin IgM Ab <12 MPL (<=12) 10/21/16 11:45 - Hospital Course Hospital Course: This patient is a 41 year old male with a questionable PMHx who was admitted for evaluation and treatment of PE 2/2 immobility. History is questionable due to conflicting history from patient and family friend/his pain management physician. Further investigation revealed that patient has had PE in past and has been non-compliant with his coumadin. US showed evidence of DVT in LLE and CT showed multilobar right sided acute PE. Hypercoagubility workup was negative. Patient was started on Heparin drip and bridged to Coumadin. Patient has an INR of 2.26 on day of discharge. Patient was bradycardic overnight during his stay 2/2 to possible morphine administration. EKG was ordered and showed no heart blocks or arrhythmias. Patient will follow up with Dr. Keith (pain management physician and family friend) or [facility] within a week of discharge. He is to take Coumadin daily for PE treatment and can take motrin 600mg prn for pain. Patient is agreeable to plan and medications. Patient seen, reviewed, and discussed with Attending. Inocente Yoo PGY-1 - Date & Time of H&P Date of H&P: 10/25/16 Time of H&P: 14:28 Discharge Exam - Head Exam Head Exam: ATRAUMATIC, NORMOCEPHALIC - Eye Exam Eye Exam: EOMI, Normal appearance. absent: Scleral icterus - ENT Exam ENT Exam: Mucous Membranes Moist - Respiratory Exam Respiratory Exam: Clear to PA & Lateral, NORMAL BREATHING PATTERN. absent: Rales, Rhonchi, Wheezes, Respiratory Distress, Stridor - Cardiovascular Exam Cardiovascular Exam: RRR, +S1, +S2 - GI/Abdominal Exam GI & Abdominal Exam: Normal Bowel Sounds, Soft. absent: Tenderness - Extremities Exam Additional comments: No lower extremity tenderness - Neurological Exam Neurological exam: Alert, Oriented x3 - Psychiatric Exam Psychiatric exam: Normal Affect, Normal Mood - Skin Skin Exam: Dry, Intact, Normal Color, Warm Discharge Plan - Discharge Medications Prescriptions: Ibuprofen [Motrin] 600 mg PO Q8H PRN #15 tab PRN Reason: Pain, Severe (8-10) Warfarin [Coumadin] 5 mg PO 1800 #5 tab - Follow Up Plan Condition: STABLE Disposition: HOME/ ROUTINE Instructions: Warfarin (By mouth), Pulmonary Embolism (GEN), Heart Healthy Diet (DC), Deep Venous Thrombosis (DC) Additional Instructions: 1. Take Coumadin daily. 2. Follow up with Dr. Keith in [place] (pain management doctor and family friend) for INR check on Monday. (Last INR was 2.26) 3. Take Motrin as needed for pain 4. Can follow up with [facility] if patient cannot see physician in [place]. <Elizabeth Alvarez - Last Filed: 10/25/16 16:43> Provider - Provider Date of Admission: 10/21/16 11:36 Attending physician: Elizabeth Alvarez MD Hospital Course - Lab Results Lab Results: Most Recent Lab Values WBC 7.1 10^3/ul (4.5-11.0) 10/25/16 07:00 RBC 4.77 10^6/uL (3.5-6.1) 10/25/16 07:00 Hgb 14.4 gm/dL (14.0-18.0) 10/25/16 07:00 Hct 42.7 % (42.0-52.0) 10/25/16 07:00 MCV 89.5 fL (80.0-105.0) 10/25/16 07:00 MCH 30.2 pg (25.0-35.0) 10/25/16 07:00 MCHC 33.7 g/dl (31.0-37.0) 10/25/16 07:00 RDW 12.7 % (11.5-14.5) 10/25/16 07:00 Plt Count 247 10^3/uL (120.0-450.0) 10/25/16 07:00 MPV 10.7 fl (7.0-11.0) 10/25/16 07:00 Gran % 50.8 % (50.0-68.0) 10/25/16 07:00 Lymph % (Auto) 36.4 % (22.0-35.0) H 10/25/16 07:00 Converse % (Auto) 8.0 % (1.0-6.0) H 10/25/16 07:00 Eos % (Auto) 4.5 % (1.5-5.0) 10/25/16 07:00 Baso % (Auto) 0.3 % (0.0-3.0) 10/25/16 07:00 Gran # 3.61 (1.4-6.5) 10/25/16 07:00 Lymph # 2.6 (1.2-3.4) 10/25/16 07:00 Converse # 0.6 (0.1-0.6) 10/25/16 07:00 Eos # 0.3 (0.0-0.7) 10/25/16 07:00 Baso # 0.02 K/mm3 (0.0-2.0) 10/25/16 07:00 PT 24.4 Seconds (9.9-11.8) H 10/25/16 07:00 INR 2.26 (0.93-1.08) H 10/25/16 07:00 APTT 116.5 Seconds (23.7-30.8) H* 10/25/16 07:00 D-Dimer, Quantitative 6.00 mg/L FEU (0-0.50) H 10/20/16 21:35 Protein C Activity 81 % (70-180) 10/21/16 11:45 Protein S Activity 96 % (70-150) 10/21/16 11:45 Factor V Activity 86 % (65-150) 10/21/16 11:45 Sodium 137 mmol/L (132-148) 10/25/16 07:00 Potassium 4.2 mmol/L (3.6-5.0) 10/25/16 07:00 Chloride 97 mmol/L (98-107) L 10/25/16 07:00 Carbon Dioxide 29 mmol/L (21-33) 10/25/16 07:00 Anion Gap 15 (10-20) 10/25/16 07:00 BUN 16 mg/dL (7-21) 10/25/16 07:00 Creatinine 1.0 mg/dL (0.5-1.4) 10/25/16 07:00 Est GFR ( Amer) > 60 10/25/16 07:00 Est GFR (Non-Af Amer) > 60 10/25/16 07:00 Random Glucose 95 mg/dL (70-110) 10/25/16 07:00 Hemoglobin A1c 6.2 % (4.2-6.5) 10/21/16 06:00 Calcium 9.4 mg/dL (8.4-10.5) 10/25/16 07:00 Phosphorus 3.3 mg/dL (2.5-4.5) 10/21/16 06:00 Magnesium 1.8 mg/dL (1.7-2.2) 10/21/16 06:00 Total Bilirubin 0.8 mg/dL (0.2-1.3) 10/20/16 19:10 AST 23 U/L (15-59) 10/20/16 19:10 ALT 23 U/L (7-56) 10/20/16 19:10 Alkaline Phosphatase 54 U/L (38-133) 10/20/16 19:10 Total Protein 7.7 g/dL (5.8-8.3) 10/20/16 19:10 Albumin 4.4 g/dL (3.0-4.8) 10/20/16 19:10 Globulin 3.3 gm/dL 10/20/16 19:10 Albumin/Globulin Ratio 1.3 (1.1-1.8) 10/20/16 19:10 Triglycerides 84 mg/dL (35-160) 10/21/16 06:00 Cholesterol 165 mg/dL (130-200) 10/21/16 06:00 LDL Cholesterol Direct 106 mg/dL (0-129) 10/21/16 06:00 HDL Cholesterol 39 mg/dL (29-60) 10/21/16 06:00 Lipase 55 U/L (23-300) 10/21/16 06:00 Procalcitonin 0.13 NG/ML (0.19-0.49) L 10/21/16 11:45 Urine Color Yellow (YELLOW) 10/20/16 19:10 Urine Appearance Clear (CLEAR) 10/20/16 19:10 Urine pH 6.0 (4.7-8.0) 10/20/16 19:10 Ur Specific [place] 1.020 (1.005-1.035) 10/20/16 19:10 Urine Protein Trace mg/dL (<30 mg/dL) H 10/20/16 19:10 Urine Glucose (UA) Negative mg/dL (NEGATIVE) 10/20/16 19:10 Urine Ketones Negative mg/dL (NEGATIVE) 10/20/16 19:10 Urine Blood Negative (NEGATIVE) 10/20/16 19:10 Urine Nitrate Negative (NEGATIVE) 10/20/16 19:10 Urine Bilirubin Negative (NEGATIVE) 10/20/16 19:10 Urine Urobilinogen 0.2 E.U./dL (<1 E.U./dL) 10/20/16 19:10 Ur Leukocyte Esterase Negative Agueda/uL (NEGATIVE) 10/20/16 19:10 Urine RBC 0 - 2 /hpf (0-2) 10/20/16 19:10 Urine WBC 0 - 2 /hpf (0-6) 10/20/16 19:10 Ur Epithelial Cells 0 - 2 /hpf (0-5) 10/20/16 19:10 Urine Bacteria Neg (NEG) 10/20/16 19:10 [id number] Ab <9 STORM (<=20) 10/21/16 11:45 Beta-2 GPI IgG Ab <9 SGU (<=20) 10/21/16 11:45 Beta-2 GPI IgM Ab <9 SMU (<=20) 10/21/16 11:45 Phosphatidylserine IgG <10 U/mL (<10) 10/21/16 11:45 Phosphatidylserine IgA <20 U/mL (<20) 10/21/16 11:45 Phosphatidylserine IgM <25 U/mL (<25) 10/21/16 11:45 Anti-Phospholipid Intrp see note 10/21/16 11:45 Anti-Cardiolipin IgG Ab <14 GPL (<=14) 10/21/16 11:45 Anti-Cardiolipin IgA Ab <11 APL (<=11) 10/21/16 11:45 Anti-Cardiolipin IgM Ab <12 MPL (<=12) 10/21/16 11:45 Attending/Attestation - Attestation I have personally seen and examined this patient.: Yes I have fully participated in the care of the patient.: Yes I have reviewed all pertinent clinical information, including history, physical exam and plan: Yes Notes (Text): I have seen and examined the patient at bedside. 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 He was started on heparin and coumadin. Today INR is therapeutic. Patient will be discharged on coumadin. Hypercoagulable work up is pending and that needs to be followed up in [facility] clinic. Encouraged to use incentive spirometer. Discussed with Dr Felix. Upon discharge patient will follow up in [facility] clinic. Needs repeat INR on 10/27/2016. He had one episode of asymptomatic bradycardia which resolved on its own. EKG showed NSR. Dr Elizabeth Alvarez
--- NOTE | 2016-10-25 16:33 | CARD ---
APPROVED REPORT EKG Measurement Heart [id number] <Conclusion> Normal sinus rhythm Normal ECG
== END 2016-10-25 16:45 | disposition home or self-care (01) | DRG 543 ==
LOC: ED 18:47 → ERH 22:45 → 2RSO 10-21 00:09 → OBSVTOIN 10-21 11:36
PROVIDERS: ADMIT Hospitalist; ATTEND Hospitalist
DX: I82.442 Acute embolism and thrombosis of left tibial vein (principal); I26.99 Other pulmonary embolism without acute cor pulmonale; I07.1 Rheumatic tricuspid insufficiency; J98.11 Atelectasis; I27.2 Other secondary pulmonary hypertension; I82.432 Acute embolism and thrombosis of left popliteal vein; D72.829 Elevated white blood cell count, unspecified; K59.00 Constipation, unspecified; Z79.01 Long term (current) use of anticoagulants; Z82.49 Family history of ischemic heart disease and other diseases of the circulatory system; Z86.718 Personal history of other venous thrombosis and embolism; Z87.891 Personal history of nicotine dependence; Z91.14 Patient's other noncompliance with medication regimen; R40.2412 Glasgow coma scale score 13-15, at arrival to emergency department; R07.81 Pleurodynia; R00.1 Bradycardia, unspecified; T40.2X5A Adverse effect of other opioids, initial encounter